=== PATIENT | male | born 1980 | race Hispanic/Latino ===

== ENCOUNTER 2016-06-25 15:28 | Emergency (ER) | payer OTHER ==
[~2016-06-25] VITALS: Ht 177.8 cm; Wt 102.1 kg
[~2016-06-25 15:28] MED LIST: AZITHROMYCIN250 M1 PO; BENADRYL PO; BENADRYL/LIDO/MAALOX PO; CLEOCIN HCL300 M1 PO; LIDO PO; MAALOX PO; MUCINEX FAST-M1 EAC8 PO; NORCO 325 MG-51 TAB PO; NORCO 5-325 TA1 EACH PO; TESSALON PERLE100 M1 PO; TRIAMINIC COLD118 ML PO
--- NOTE | 2016-06-25 16:17 | ED GI/GU/ABDOMINAL COMPLAINT ---
History of Present Illness General Chief Complaint: Abdominal Pain/Flank Pain Stated Complaint: SWELLING AREA IN ABD. NOTICED WHILE COUGHING Source: patient Exam Limitations: no limitations Vital Signs & Intake/Output Vital Signs & Intake/Output Vital Signs Date Time Temp Pulse Resp B/P Pulse O2 O2 Flow FiO2 Ox Delivery Rate 06/25 1813 98.2 98 16 122/68 98 Room Air 06/25 1557 97.9 111 18 125/77 97 Room Air ED Intake and Output 06/26 0000 06/25 1200 Intake Total 0 Output Total Balance 0 Intake, Oral 0 Patient 225 lb Weight Allergies Coded Allergies: Penicillins (SWELLING AND FELLING VERY HOT A KID AND ADULT 03/14/16) Reconcile Medications Benzonatate 200 MG CAPSULE 1 CAP PO TID PRN COUGH Doxycycline Hyclate (Vibramycin) 100 MG CAPSULE 1 CAP PO BID infection Meloxicam (Mobic) 15 MG TABLET 1 TAB PO DAILY PRN PAIN/INFLAMMATION Triage Note: PT TO TRIAGE WITH C/O FEELING WEEK, CONGESTED x2DAYS, AND ABD PAIN SINCE YESTERDAY, +BUMP TO BELLY BUTTON. DENIES N/V,CHEST PAIN,URINARY S/S. PT AFEBRILE IN TRIAGE. VSS. Triage Nurses Notes Reviewed? yes HPI: Patient is a 35 year old male with hx of hypertriglyceridemia presents complaining of abdominal pain x 1 week. Patient attributes his abdominal pain to a cough. Cough x 1.5 weeks. Right flank pain that only occurs with coughing and left umbilical pain with coughing. Patient reports small left umbilical mass that has been present for the past 6-7 months, area becoming more painful over the past 1 week. Pain is currently moderate, worsens with coughing and palpation. Temperature of 99.5 yesterday. Last bowel movement was 2 hours ago and normal. Denies nausea, vomiting. (AURELIANO GUNTER) Past History Travel History Traveled to [place] past 21 day No Medical History Any Pertinent Medical History? none Neurological: NONE EENT: NONE Cardiovascular: NONE Respiratory: NONE Gastrointestinal: NONE Hepatic: NONE Renal: NONE Musculoskeletal: NONE Psychiatric: NONE Endocrine: NONE Surgical History Surgical History: non-contributory Psychosocial History What is your primary language Ukrainian Tobacco Use: Current Daily Use Daily Tobacco Use Amount/Type: => 5 Cigarettes daily ETOH Use: denies use Illicit Drug Use: denies illicit drug use Family History Hx Contributory? No (AURELIANO GUNTER) Review of Systems Review of Systems Constitutional: Reports: fever (subjective), malaise. EENTM: Reports: nasal congestion (with green rhinorrhea). Respiratory: Reports: cough, sputum production. Cardiovascular: Denies: chest pain. GI: Reports: see HPI, abdominal pain. Denies: diarrhea, nausea, vomiting. Genitourinary: Reports: no symptoms. Musculoskeletal: Reports: no symptoms. Skin: Reports: no symptoms. Neurological/Psychological: Reports: no symptoms. Hematologic/Endocrine: Reports: no symptoms. Immunologic/Allergic: Reports: no symptoms. (AURELIANO GUNTER) Physical Exam Physical Exam General Appearance: well developed/nourished, alert, awake Head: atraumatic, normal appearance, right maxillary sinus tenderness Eyes: Bilateral: normal appearance, PERRL, EOMI. Ears, Nose, Throat, Mouth: moist mucous membrane, positive nasal congestion Neck: normal inspection, supple, full range of motion Respiratory: normal breath sounds, chest non-tender, no respiratory distress, lungs clear Cardiovascular: regular rate/rhythm Gastrointestinal: normal bowel sounds, soft, 1-2 cm round palpable mass to the left lateral border of the umbilicus. Area is soft, positive tenderness. Negative Almanza sign, negative McBurney's point tenderness Back: normal inspection, normal range of motion Extremities: normal range of motion Neurologic/Psych: no motor/sensory deficits, awake, alert, oriented x 3, normal gait, normal mood/affect Skin: intact, normal color, warm/dry Core Measures ACS in differential dx? No Severe Sepsis Present: No Septic Shock Present: No (AURELIANO GUNTER) Progress Differential Diagnosis: appendicitis, biliary colic, cholecystitis, hernia, ischemic bowel, sinusitis, bronchitis, pneumonia Plan of Care: Orders Procedure Date/time Status LIPASE 06/25 1642 Complete COMPREHENSIVE METABOLIC PANEL 06/25 1642 Complete CBC WITHOUT DIFFERENTIAL 06/25 164 Complete Laboratory Tests 06/25/16 1648: Anion Gap 13, Estimated GFR > 60, BUN/Creatinine Ratio 13.0, Glucose 98, Calcium 9.3, Total Bilirubin 0.4, AST 49, ALT 64, Alkaline Phosphatase 90, Total Protein 7.4, Albumin 4.2, Globulin 3.2, Albumin/Globulin Ratio 1.3, Lipase 75, CBC w Diff NO MAN DIFF REQ, RBC 5.37, MCV 82.9, MCH 28.5, RDW 12.8, MPV 9.0, Gran % 53.7, Lymphocytes % 32.1, Monocytes % 10.7 H, Eosinophils % 2.7, Basophils % 0.8, Absolute Granulocytes 5.2, Absolute Lymphocytes 3.1, Absolute Monocytes 1.0 H, Absolute Eosinophils 0.3, Absolute Basophils 0.1, PUBS MCHC 34.3 Results of labs and CT scan discussed with patient including incidental findings. Lungs clear throughout, lung imaging deferred. Patient appears stable for discharge with outpatient follow-up. Discussed with Dr. Gonzalez. (ANA GUERIN,AURELIANO) Diagnostic Imaging: Viewed by Me: CT Scan. Discussed w/RAD: CT Scan. Radiology Impression: PATIENT: KATHARINE FLOWERS PRESENT AGE: 35 PATIENT ACCOUNT NO: [id number] : 81 LOCATION: [facility] ORDERING PHYSICIAN: AURELIANO GUERIN SERVICE DATE: 06/25/16 EXAM TYPE: CAT - CT ABD & PELVIS W IV CONTRAST EXAMINATION: CT ABDOMEN AND PELVIS WITH CONTRAST CLINICAL INFORMATION: Abdominal pain. Umbilical tenderness. COMPARISON: Prior chest radiographs most recent 03/14/2016. TECHNIQUE: Multidetector volumetric imaging was performed of the abdomen and pelvis before and after the IV administration of 95 mL of Optiray 320 intravenous contrast. Sagittal and coronal reformatted images were obtained on the technologist's workstation. DLP: 532.08 mGy-cm. FINDINGS: BIOFUELS MANAGER: Nonobstructive gas pattern. LUNG BASES: The visualized lung bases are unremarkable. LIVER, GALLBLADDER, AND BILIARY TREE: The liver is normal in size, shape, and attenuation. No focal hepatic lesion or biliary ductal dilatation is present. Transient hepatic attenuation defect noted in segment IVb, an anatomic variant. The gallbladder is contracted. There is food in the stomach and this is presumably postprandial. No pericholecystic inflammation. Normal caliber bile ducts. PANCREAS: Unremarkable. SPLEEN: There is a large thin-walled splenic cyst under the diaphragm measuring 7 cm in diameter containing rim calcifications. These findings are typically due to remote trauma or infection. A small accessory spleen is also noted. No inflammatory findings to suggest rupture or superinfection at this time. ADRENAL GLANDS: Unremarkable. KIDNEYS AND URETERS: The kidneys are normal in size, shape , and attenuation. No hydronephrosis, hydroureter, or calculi seen. No perinephric stranding. BLADDER: There is a tiny high attenuation focus underlying the dome of the bladder (series 2 image 84/22). This is of uncertain etiology possibly a small polyp, hematoma, adherent stone or congenital urachal remnant. Further evaluation with ultrasound of the bladder is suggested. This is likely an incidental finding. GASTROINTESTINAL TRACT: There is food fluid and high density material in the stomach. Small bowel is normal in caliber without obstruction. Normal appendix and terminal ileum well seen in the right lower quadrant. No evidence of colitis. No free air. No free fluid. ABDOMINAL WALL: There is a small hernia at the umbilicus containing only fat (series 2 image 64/ 102). There is fat stranding and this is likely the cause of patient's pain. LYMPH NODES: Normal. VASCULAR: The abdominal aorta is normal in caliber. Incidental retroaortic left renal vein, an anatomic variant. Separate origin of the common hepatic artery from the aorta, an anatomic variant. PELVIC VISCERA: The prostate and seminal vesicles are unremarkable. No free fluid or adenopathy. As previously noted, there is a small high attenuation filling defect in the lumen of the bladder under the dome. Bladder ultrasound is suggested. OSSEOUS STRUCTURES: Unremarkable. IMPRESSION: 1. There is a small fat-containing umbilical hernia with fat stranding suggesting entrapment. This is the likely cause of the patient's umbilical pain. No bowel involvement or obstruction. 2. A tiny high attenuation filling defect is noted in the bladder lumen underlying the dome. Differential considerations as above. Recommend bladder ultrasound. 3. A 7 cm splenic cyst with rim calcification consistent with prior trauma or infection. DICTATED BY: ALYSSA PATEL MD DATE/TIME DICTATED:06/25/161750 LEAD SPRINKLER:LILIA DATE/TIME TRANSCRIBED:06/25/161750 CONFIDENTIAL, DO NOT COPY WITHOUT APPROPRIATE AUTHORIZATION. <Electronically signed in Other Vendor System> SIGNED BY: ALYSSA PATEL MD 06/25/16 5122 Initial ED EKG: none (AURELIANO GUNTER) Departure Departure Disposition: HOME OR SELF CARE Condition: Stable Clinical Impression Primary Impression: Sinusitis Qualifiers: Sinusitis location: maxillary Chronicity: acute Recurrence: non- recurrent Qualified Code: J01.00 - Acute maxillary sinusitis, unspecified Secondary Impressions: Umbilical hernia Qualifiers: Obstruction and gangrene presence: without obstruction or gangrene Qualified Code: K42.9 - Umbilical hernia without obstruction or gangrene Referrals: KAYLA BOURGEOIS APRN (PCP/Family) KATHARINA FORD,YARI Bueno Additional Instructions: Follow-up with Dr. Alexander (general surgeon) for further evaluation of your hernia. Call tomorrow morning for appointment. Also follow-up with your primary care provider for further evaluation of the emergency department workup and the incidental findings noted on your CT scan. Call tomorrow for appointment to follow-up within 1-2 weeks. Return to the emergency department if fevers, increasing abdominal pain, or worsening of symptoms. Departure Forms: Customer Survey General Discharge Information Prescriptions: Current Visit Scripts Doxycycline Hyclate (Vibramycin) 1 CAP PO BID #20 CAP Meloxicam (Mobic) 1 TAB PO DAILY PRN PAIN/INFLAMMATION #10 TAB Benzonatate 1 CAP PO TID PRN COUGH #30 CAP (AURELIANO GUNTER) PA/JUMP ROLL OPERATOR Co-Sign Statement Statement: ED Attending supervision documentation- [] I saw and evaluated the patient. I have also reviewed all the pertinent lab results and diagnostic results. I agree with the findings and the plan of care as documented in the PA's/JUMP ROLL OPERATOR's documentation. [X] I have reviewed the ED Record and agree with the PA's/JUMP ROLL OPERATOR's documentation. [] Additions or exceptions (if any) to the PAs/JUMP ROLL OPERATOR's note and plan are summarized below: [] (ANNIKA FORD,CAMERON)
[2016-06-25 17:03] LABS: ABSOLUTE BASOPHIL COUNT 0.1 /CUMM (0.0-0.2); ABSOLUTE EOSINOPHIL COUNT 0.3 /CUMM (0.0-0.7); ABSOLUTE GRANULOCYTE CT 5.2 /CUMM (1.4-6.5); ABSOLUTE LYMPH COUNT 3.1 /CUMM (1.2-3.4); BASOPHIL % 0.8 % (0.0-2.0); EOSINOPHIL % 2.7 % (0-5); GRANULOCYTE % 53.7 % (42.2-75.2); HEMATOCRIT 44.5 % (42-52); MEAN CORPUSCULAR HGB 28.5 PG (27.0-31.0); MEAN CORPUSCULAR HGB CONC 34.3 G/DL (33.0-37.0); MEAN CORPUSCULAR VOLUME 82.9 FL (80.0-94.0); PLATELET COUNT 253 /CUMM (130-400); RBC DISTRIBUTION WIDTH 12.8 % (11.5-14.5); RED BLOOD CELL CT 5.37 /CUMM (4.70-6.10); WHITE BLOOD CELL COUNT 9.6 /CUMM (4.8-10.8)
[2016-06-25 18:13] VITALS: BP 122/68
--- NOTE | 2016-06-25 18:23 | CT SCAN REPORT ---
EXAMINATION: CT ABDOMEN AND PELVIS WITH CONTRAST CLINICAL INFORMATION: Abdominal pain. Umbilical tenderness. COMPARISON: Prior chest radiographs most recent 03/14/2016. TECHNIQUE: Multidetector volumetric imaging was performed of the abdomen and pelvis before and after the IV administration of 95 mL of Optiray 320 intravenous contrast. Sagittal and coronal reformatted images were obtained on the technologist's workstation. DLP: 532.08 mGy-cm. FINDINGS: DIRECTOR OF MANAGED CARE: Nonobstructive gas pattern. LUNG BASES: The visualized lung bases are unremarkable. LIVER, GALLBLADDER, AND BILIARY TREE: The liver is normal in size, shape, and attenuation. No focal hepatic lesion or biliary ductal dilatation is present. Transient hepatic attenuation defect noted in segment IVb, an anatomic variant. The gallbladder is contracted. There is food in the stomach and this is presumably postprandial. No pericholecystic inflammation. Normal caliber bile ducts. PANCREAS: Unremarkable. SPLEEN: There is a large thin-walled splenic cyst under the diaphragm measuring 7 cm in diameter containing rim calcifications. These findings are typically due to remote trauma or infection. A small accessory spleen is also noted. No inflammatory findings to suggest rupture or superinfection at this time. ADRENAL GLANDS: Unremarkable. KIDNEYS AND URETERS: The kidneys are normal in size, shape, and attenuation. No hydronephrosis, hydroureter, or calculi seen. No perinephric stranding. BLADDER: There is a tiny high attenuation focus underlying the dome of the bladder (series 2 image 84/22). This is of uncertain etiology possibly a small polyp, hematoma, adherent stone or congenital urachal remnant. Further evaluation with ultrasound of the bladder is suggested. This is likely an incidental finding. GASTROINTESTINAL TRACT: There is food fluid and high density material in the stomach. Small bowel is normal in caliber without obstruction. Normal appendix and terminal ileum well seen in the right lower quadrant. No evidence of colitis. No free air. No free fluid. ABDOMINAL WALL: There is a small hernia at the umbilicus containing only fat (series 2 image 64/102). There is fat stranding and this is likely the cause of patient's pain. LYMPH NODES: Normal. VASCULAR: The abdominal aorta is normal in caliber. Incidental retroaortic left renal vein, an anatomic variant. Separate origin of the common hepatic artery from the aorta, an anatomic variant. PELVIC VISCERA: The prostate and seminal vesicles are unremarkable. No free fluid or adenopathy. As previously noted, there is a small high attenuation filling defect in the lumen of the bladder under the dome. Bladder ultrasound is suggested. OSSEOUS STRUCTURES: Unremarkable. IMPRESSION: 1. There is a small fat-containing umbilical hernia with fat stranding suggesting entrapment. This is the likely cause of the patient's umbilical pain. No bowel involvement or obstruction. 2. A tiny high attenuation filling defect is noted in the bladder lumen underlying the dome. Differential considerations as above. Recommend bladder ultrasound. 3. A 7 cm splenic cyst with rim calcification consistent with prior trauma or infection.
[2016-06-25] MEDS ORDERED: VIBRAMYCIN100 MG PO (18:37)
[2016-06-25] MEDS ORDERED: BENZONATATE200 M1 PO (18:37)
[2016-06-25] MEDS ORDERED: MOBIC15 M1 PO (18:37)
== END 2016-06-25 18:37 ==
LOC: ERH 15:28
PROVIDERS: Physician Assistant
DX: J32.9 Chronic sinusitis, unspecified (principal); K42.9 Umbilical hernia without obstruction or gangrene
CPT/HCPCS: 74177

== ENCOUNTER 2016-11-27 00:57 | Emergency (ER) | payer OTHER ==
[~2016-11-27] VITALS: Ht 177.8 cm; Wt 102.1 kg
[~2016-11-27 00:57] MED LIST changes: +BENZONATATE200 M1 PO; +MOBIC15 M1 PO; +VIBRAMYCIN100 MG PO
[2016-11-27 01:18] VITALS: BP 115/80
--- NOTE | 2016-11-27 01:50 | ED UPPER/LOWER EXTREMITY COMPL ---
History of Present Illness General Chief Complaint: Laceration Procedure Stated Complaint: "PER PT CUT LT HAND W/ POCKET KNIFE, ?LAC" Source: patient Exam Limitations: no limitations Vital Signs & Intake/Output Vital Signs & Intake/Output Vital Signs Date Time Temp Pulse Resp B/P B/P Pulse O2 O2 Flow FiO2 Mean Ox Delivery Rate 11/27 0144 Room Air 11/27 0118 98.2 92 18 115/80 97 Room Air Allergies Coded Allergies: Penicillins (SWELLING AND FELLING VERY HOT A KID AND ADULT 11/27/16) Reconcile Medications No Known Home Medications Triage Note: TRIAGE: PATIENT TO ER FROM HOME REPORTING LAC TO L HAND W/ POCKET KNIFE APPROX 9:30PM TONIGHT. LAC NOTED APPROX 3CM TO BETWEEN THUMB AND 2ND DIGIT. NO ACTIVE BLEEDING NOTED. REPORTS NOT UTD W/ TETNAUS SHOT. Triage Nurses Notes Reviewed? yes Onset: Abrupt Duration: hour(s): Timing: single episode today Severity: mild Pain/Injury Location: Left: Hand. Method of Injury: incised Modifying Factors: Improves With: rest. Associated Symptoms: bleeding... self resolved. HPI: 36yo gentleman cut his left hand with a knife while undoing a zip-tie approximately 3-4 hours ago. He is able to move his hand without problem. He notes no redness or tenderness. He is otherwise well. Past History Travel History Traveled to [place] past 21 day No Medical History Any Pertinent Medical History? see below for history Neurological: NONE EENT: NONE Cardiovascular: NONE Respiratory: NONE Gastrointestinal: NONE Hepatic: NONE Renal: NONE Musculoskeletal: NONE Psychiatric: NONE Endocrine: NONE Blood Disorders: NONE Cancer(s): NONE STAFFING RECRUITER/Reproductive: NONE History of CDIFF: No Surgical History Surgical History: non-contributory Psychosocial History What is your primary language Yakut Tobacco Use: Refused to answer Family History Hx Contributory? No Review of Systems Review of Systems Constitutional: Reports: no symptoms. EENTM: Reports: no symptoms. Respiratory: Reports: no symptoms. Cardiovascular: Reports: no symptoms. Gastrointestinal/Abdominal: Reports: no symptoms. Genitourinary: Reports: no symptoms. Musculoskeletal: Reports: no symptoms. Skin: Reports: no symptoms. Neurological/Psychological: Reports: no symptoms. Hematologic/Endocrine: Reports: no symptoms. Immunological: Reports: no symptoms. All Other Systems: Reviewed and Negative Physical Exam Physical Exam General Appearance: well developed/nourished, mild distress Head: atraumatic Neck: normal inspection Cardiovascular/Respiratory: normal breath sounds Back: normal inspection Hand Left: 3cm laceration on left dorsal surface between thumb and 2nd digit. ligaments intact. no sign of infection. light touch intact. Progress Differential Diagnosis: laceration vs other. Plan of Care: Current Medications Sig/Hernán Start time Last Medication Dose Stop Time Status Admin Lidocaine 20 ML ONCE ONE 11/27 199 UNVr (Lidocaine 1%) 11/27 200 Tetanus/Diphtheria 0.5 ML ONCE ONE 11/27 199 UNVr Toxoids Adsorbed 11/27 200 (Decavac) Departure Departure Disposition: HOME OR SELF CARE Condition: Stable Clinical Impression Primary Impression: Laceration Referrals: KAYLA BOURGEOIS APRN (PCP/Family) Departure Forms: Customer Survey General Discharge Information Prescriptions: Current Visit Scripts No Known Home Medications Procedures Laceration/Wound Repair Laceration/Wound Repair: Wound Location: left hand Wound's Depth, Shape: linear, into muscle Wound Length (cm): 3 Wound Explored: clean, no foreign body removed Irrigated w/ Saline (ccs): 300 Betadine Prep? Yes Anesthesia: 1% lidocaine Volume Anesthetic (ccs): 3 Wound Repaired With: sutures Suture Size/Type: 5:0, nylon Number of Sutures: 3 Layer Closure? No Date of Last Tetanus: 11/27/16
== END 2016-11-27 02:27 ==
LOC: ERH 00:57
DX: S61.412A Laceration without foreign body of left hand, initial encounter (principal); W26.0XXA Contact with knife, initial encounter; Y93.89 Activity, other specified; Y92.9 Unspecified place or not applicable
CPT/HCPCS: 90471; 90714